=== PATIENT | male | born 1995 | race Caucasian/White ===

== ENCOUNTER 2021-02-27 18:19 | Emergency (ER) | payer SELFPAY ==
[~2021-02-27] VITALS: Ht 172.7 cm; Wt 100.0 kg
[2021-02-27] MEDS ORDERED: vitamins (18:47)
[2021-02-27 18:54] VITALS: BP 137/63
[2021-02-27 19:10] LABS: BASOPHILS % 0.6 % (0.0-2.0); EOSINOPHILS % 0.6 % (0.0-5.0); HEMOGLOBIN. 16.7 g/dL (14.0-18.0); LYMPHOCYTES % 13.4 % (20.0-50.0); MEAN CORPUSCULAR HEMOGLOBIN 30.1 pg (28.0-32.0); MEAN CORPUSCULAR VOLUME 88.4 fL (80.0-94.0); MEAN PLATELET VOLUME 10.2 fl (7.4-10.4); MONOCYTES % 6.8 % (2.0-8.0); NEUTROPHILS % 78.6 % (40.0-76.0); PLATELET 177 x1000/uL (130-400); RED BLOOD CELL COUNT 5.54 mill/uL (4.7-6.1); RED CELL DISTRIBUTION WIDTH 14.1 % (11.6-14.6)
[2021-02-27 19:16] LABS: CHLORIDE 104 mEq/L (98-107)
[2021-02-27 19:21] LABS: ETHANOL BLOOD < 10 mg/dL
== END 2021-02-27 19:51 | disposition left against medical advice (07) ==
LOC: ER 18:19
DX: T50.903A Poisoning by unspecified drugs, medicaments and biological substances, assault, initial encounter (principal); R41.82 Altered mental status, unspecified; R55 Syncope and collapse; R06.02 Shortness of breath; R03.0 Elevated blood-pressure reading, without diagnosis of hypertension; Z20.822 Contact with and (suspected) exposure to COVID-19; Y92.89 Other specified places as the place of occurrence of the external cause
CPT/HCPCS: 36415; 80053; 80307; 80320; 80329; 82962; 83880; 84484; 85025; 85379; 87426; 99283; G0480